=== PATIENT | female | born 1940 | race Caucasian/White ===

== ENCOUNTER → 2018-04-25 13:32 | Outpatient (CLI) | payer MEDICARE, SELFPAY ==
--- NOTE | 2018-04-25 | DI.RAD.S_ITS ---
PROCEDURE: XR SHOULDER LT MIN 2V INDICATIONS: UNKNOWN TECHNIQUE: 3 views of the shoulder were acquired. COMPARISON: None. FINDINGS: Bones: No acute fractures or dislocations and there has been healing of a comminuted complex angulated fracture involving the proximal humeral metadiaphyseal junction, in gross anatomic alignment.. No suspicious bony lesions. Visualized ribs appear intact. Soft tissues: No suspicious soft tissue calcifications. IMPRESSION: Proximal left humeral fracture was comminuted and malaligned moderately, and shows healing with callus bridging each of the fracture planes. No new injury is seen. Dictated by: Bertin Arora M.D. on 04/25/2018 at 14:57 Approved by: Bertin Arora M.D. on 04/25/2018 at 14:58
== END ==
PROVIDERS: Visit Provider Physician Assistant Surgical
DX: S42.292D Other displaced fracture of upper end of left humerus, subsequent encounter for fracture with routine healing (principal)
CPT/HCPCS: 73030

== ENCOUNTER → 2024-03-20 13:12 | Outpatient (CLI) | payer MEDICARE, SELFPAY ==
--- NOTE | 2024-03-20 13:21 | DI.RAD.S_ITS ---
PROCEDURE: XR RIBS LT 2V INDICATIONS: PAIN TECHNIQUE: 3 views of the ribs were acquired. COMPARISON: [facility], CR, XR SHOULDER LT MIN 2V, 04/25/2018, 13:27. FINDINGS: Surgical changes and devices: None. Skin marker at the inferior left ribs. Bones and chest wall: No fractures or dislocations. No suspicious bony lesions. Overlying soft tissues appear unremarkable. Prior fracture of the left proximal humerus Lungs and pleura: The visualized lung appears clear. No pleural effusions or pneumothorax are visible. IMPRESSION: No displaced left-sided rib fracture seen. Dictated by: Medhat Suazo M.D. on 03/20/2024 at 16:09 Approved by: Medhat Suazo M.D. on 03/20/2024 at 16:10
--- NOTE | 2024-03-20 13:21 | DI.RAD.S_ITS ---
PROCEDURE: XR KNEE RT 3V INDICATIONS: PAIN TECHNIQUE: 3 views of the knee were acquired. COMPARISON: None. FINDINGS: Bones: No fractures or dislocations. No suspicious bony lesions. Soft tissues: Trace joint effusion. Prepatellar soft tissue swelling. No suspicious soft tissue calcifications. Arterial vascular calcifications. IMPRESSION: No fracture identified. Prepatellar soft tissue swelling. Dictated by: Medhat Suazo M.D. on 03/20/2024 at 16:07 Approved by: Medhat Suazo M.D. on 03/20/2024 at 16:09
[2024-03-20 14:35] LABS: Add Manual Diff / Slide Review NO; Basophils Absolute Auto 100 /uL (0-100); Basophils Percent Auto 1.2 % (0-2); Eosinophils Absolute Auto 300 /uL (0-450); Eosinophils Percent Auto 2.6 % (2-4); Hematocrit 38.6 % (36-46); Hemoglobin 12.9 g/dL (12.0-16.0); Lymphocytes Absolute Auto 1900 /uL (1100-4500); Lymphocytes Percent Auto 17.7 % (25-40); Mean Corpuscular HGB Conc 33.5 % (30-36); Mean Corpuscular Volume 92.7 fL (80-100); Monocytes Absolute Auto 1000 /uL (0-900); Monocytes Percent Auto 9.2 % (3-14); Neutrophils Absolute Auto 7600 /uL (1500-7000); Neutrophils Percent Auto 69.3 % (50-75); Platelet Count 388 X10^3/uL (150-400); Red Blood Cell Count 4.17 X10^6/uL (4.0-5.2); Red Cell Distribution Width 12.7 % (11.6-14.8)
[2024-03-20 14:58] LABS: Erythrocyte Sedimentation Rate 30 MM/HR (0-20)
[2024-03-20 15:41] LABS: TSH w/ Reflex to FT4 0.77 uIU/mL (0.47-4.68)
[2024-03-20 15:51] LABS: Alanine Aminotransferase 21 IU/L (<35); Albumin 4.6 g/dL (3.5-5.0); Albumin Globulin Ratio 1.2 (1.0-2.8); Alkaline Phosphatase 117 U/L (38-126); Aspartate Aminotransferase 30 IU/L (14-36); BUN Creatinine Ratio 30.8 (6-22); Bilirubin Total 0.5 mg/dL (0.2-1.3); Blood Urea Nitrogen 20 mg/dL (7-17); Calcium 9.4 mg/dL (8.4-10.2); Carbon Dioxide 26 mmol/L (22-32); Chloride 106 mmol/L (98-107); Estimated Glomerular Filt Rate > 60 mL/min (>60); Globulin 3.7 g/dL (1.7-4.1); Glucose 105 mg/dL (80-110); Potassium 4.7 mmol/L (3.4-5.1); Sodium 139 mmol/L (137-145); Total Protein 8.3 g/dL (6.3-8.2); Uric Acid 5.5 mg/dL (2.5-6.2)
[2024-03-21 04:28] LABS: HEMOLYSIS < 15 (0-50)
== END ==
LOC: RAD 13:17
PROVIDERS: PCP Nurse Practitioner Family; Referring Provider Nurse Practitioner Family; Visit Provider Nurse Practitioner Family
DX: R07.82 Intercostal pain (principal); M70.41 Prepatellar bursitis, right knee; R03.0 Elevated blood-pressure reading, without diagnosis of hypertension; M25.561 Pain in right knee; M79.89 Other specified soft tissue disorders
CPT/HCPCS: 36415; 71101; 73562; 80053; 84443; 84550; 85025; 85651; 86140

== ENCOUNTER 2025-02-28 18:30 | Emergency (ER) | payer MEDICARE, SELFPAY ==
[2025-02-28] VITALS (17 sets, daily range): BP systolic 105–160; BP diastolic 51–87; PULSE 89–103; RESP 18–34; TEMP 36.4; O2SAT 92–96; BMI 26.9
--- NOTE | 2025-02-28 18:38 | EKG_ITS ---
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
--- NOTE | 2025-02-28 18:44 | DI.RAD.S_ITS ---
PROCEDURE: XR CHEST 1V INDICATIONS: chest pain TECHNIQUE: One view of the chest was acquired. COMPARISON: None. FINDINGS: Surgical changes and devices: None. Lungs and pleura: Lungs are clear. No pleural effusions or pneumothorax. Mediastinum: Mediastinal contours appear normal. Heart size is normal. Bones and chest wall: No suspicious bony lesions. Overlying soft tissues appear unremarkable. IMPRESSION: No acute pulmonary process. Dictated by: Suzi Horton M.D. on 02/28/2025 at 19:23 Approved by: Suzi Horton M.D. on 02/28/2025 at 19:23
[2025-02-28 19:09] LABS: Add Manual Diff / Slide Review NO; Basophils Absolute Auto 100 /uL (0-100); Basophils Percent Auto 1.2 % (0-2); Eosinophils Absolute Auto 200 /uL (0-450); Eosinophils Percent Auto 2.4 % (2-4); Hematocrit 39.5 % (36-46); Hemoglobin 13.2 g/dL (12.0-16.0); Lymphocytes Absolute Auto 1900 /uL (1100-4500); Lymphocytes Percent Auto 21.2 % (25-40); Mean Corpuscular HGB Conc 33.3 % (30-36); Monocytes Absolute Auto 800 /uL (0-900); Neutrophils Absolute Auto 6100 /uL (1500-7000); Neutrophils Percent Auto 66.2 % (50-75); Platelet Count 389 X10^3/uL (150-400); Red Blood Cell Count 4.25 X10^6/uL (4.0-5.2); Red Cell Distribution Width 12.4 % (11.6-14.8); White Blood Cell Count 9.1 X10^3/uL (4.5-11.0)
[2025-02-28] MEDS: ASPIRIN 81 MG CHEW TAB 324 MG PO (19:12)
[2025-02-28 19:16] LABS: Prothrombin Time 11.4 SECONDS (9.4-12.5)
[2025-02-28 19:19] LABS: PTT Partial Thromboplastin Tim 32 SECONDS (25.1-36.5)
--- NOTE | 2025-02-28 19:21 | PC.NURSE ---
Patient reports fall about 1 week ago with an injury to her right elbow. Patient denies shortness of breath. Patient respiratory rate is 26.
[2025-02-28 19:23] LABS: Alanine Aminotransferase 23 IU/L (<35); Albumin 4.5 g/dL (3.5-5.0); Albumin Globulin Ratio 1.2 (1.0-2.8); Alkaline Phosphatase 88 U/L (38-126); Aspartate Aminotransferase 32 IU/L (14-36); BUN Creatinine Ratio 28.8 (6-22); Bilirubin Total 0.4 mg/dL (0.2-1.3); Blood Urea Nitrogen 23 mg/dL (7-17); Calcium 9.5 mg/dL (8.4-10.2); Carbon Dioxide 30 mmol/L (22-32); Chloride 100 mmol/L (98-107); Creatine Kinase 54 U/L (30-135); Estimated Glomerular Filt Rate > 60 mL/min (>60); Globulin 3.7 g/dL (1.7-4.1); Glucose 171 mg/dL (70-99); HEMOLYSIS < 15 (0-50); Lactate (Lactic Acid) 1.6 mmol/L (0.7-2.1); Lipase 47 U/L (23-300); Sodium 137 mmol/L (137-145); Total Protein 8.2 g/dL (6.3-8.2)
--- NOTE | 2025-02-28 19:30 | ED.GENADULT ---
HPI - General Adult General Chief complaint: Syncope Stated complaint: Weakness, Fatigue, Dizziness Time Seen by Provider: 02/28/25 18:43 History of Present Illness HPI narrative: 84-year-old female was eating dinner at local area [employer] restaurant, walking out of the restaurant felt nauseated, no diarrhea, no abdominal pain. No associated chest pain or shortness of breath or diaphoresis. But felt like she might pass out. No focal weakness to face arm or leg. No focal numbness to face arm or leg. Symptoms seemed to past without specific treatment. Here for further evaluation, feels improved. Related Data Home Medications ?Medication ?Instructions ?Recorded ?Confirmed acetaminophen 500 mg tablet 500 mg PO Q6H PRN 02/18/25 02/18/25 (Tylenol Extra Strength) Previous Rx's ?Medication ?Instructions ?Recorded cefdinir 300 mg capsule 300 mg PO BID 7 days #14 caps 02/28/25 Allergies Allergy/AdvReac Type Severity Reaction Status Date / Time No Known Drug Allergies Allergy Verified 02/28/25 18:35 Patient History Social History (Updated 02/18/25 @ 11:46 by Asia Khalil MA) marital status: number of children: 2 lives independently: No caregiver/support person: Yes (Daughter) housing: house pets and animals: Yes (cat) education level: high school occupational status: previously employed current occupational exposures/hazards: No special musa needs: No leisure activities: games and reading seatbelt use: always water heater temp set < 120 deg: Yes working smoke detector in home: Yes fire extinguisher in home: Yes carbon monox detector in home: Yes firearms in home: No do you feel safe at home: Yes Smoking Status: Former smoker second hand exposure: No alcohol intake: former during the past year weight has: remained stable well-balanced diet: daily or most days daily servings fruits/ve-1 caffeine: Yes eating out: 1-3 times/week Type(s) of exercise: resistance training and sedentary lifestyle Smoking Status: Former smoker Exam Narrative Exam Narrative: GENERAL: Well-developed patient, in mild distress. HEAD: Atraumatic. Normocephalic. EYES: Pupils equal round and reactive. Extraocular motions intact. No scleral icterus. No injection or drainage. ENT: Nose without bleeding, purulent drainage. Throat without erythema, tonsillar hypertrophy or exudate. Airway patent. NECK: Trachea midline. Non tender CARDIOVASCULAR: Regular rate and rhythm without murmurs, gallops, or rubs. RESPIRATORY: Clear to auscultation. Breath sounds equal bilaterally. No wheezes, rales, or rhonchi. GASTROINTESTINAL: Abdomen soft, non-tender, nondistended. EXTREMITIES: No edema or joint tenderness. BACK: Nontender without deformity or crepitance. No flank tenderness. NEURO: AOx3. Motor functions grossly nonfocal. SKIN: No rash or erythema of visible areas Initial Vital Signs Initial Vital Signs: Vital Signs Temperature 97.6 F 02/28/25 18:36 Pulse Rate 93 H 02/28/25 18:36 Respiratory Rate 18 02/28/25 18:36 Blood Pressure 110/51 L 02/28/25 18:36 Pulse Oximetry 93 02/28/25 18:36 Oxygen Delivery Method Room Air 02/28/25 18:36 Course Orders Ordered: ED Orders 02/28/25 21:50 Urinalysis and Microscopic Stat Urine Culture Stat Discontinued Medications Aspirin (Aspirin 81 Mg Chew Tab) 324 mg PO NOW ONE Stop: 02/28/25 18:43 Last Admin: 02/28/25 19:12 Dose: 324 mg Documented By: LUZ Ceftriaxone Sodium 1,000 mg/ (Sodium Chloride) 100 mls @ 200 mls/hr IV NOW ONE Stop: 02/28/25 22:14 Last Infusion: 02/28/25 22:59 Dose: Infused Documented By: Admin: 02/28/25 22:18 Dose: 200 mls/hr Documented By: HNG Vital Signs Vital signs: Vital Signs - 8 hr 02/28/25 22:00 02/28/25 22:30 Pulse Rate 93 H 95 H Pulse Oximetry 94 94 Oxygen Delivery Method Room Air Medical Decision Making Lab Data Lab results reviewed: Yes I reviewed the patient's lab results. Lab results narrative: White blood cell count 9100, hemoglobin 13.2, platelets adequate. Glucose 171. BUN 23 slight elevation with normal creatinine 0.80 noted. Serum CO2 30. Electrolytes unremarkable. Liver functions normal. Lipase normal. Troponin negative/unmeasurable. BNP 198 not elevated. CPK normal. INR 1.0 normal. Urinalysis still pending. 02/28/25 19:00 02/28/25 19:00 Labs: Lab Results 02/28/25 02/28/25 Range/Units 19:00 21:50 WBC 9.1 (4.5-11.0) X10^3/uL RBC 4.25 (4.0-5.2) X10^6/uL Hgb 13.2 (12.0-16.0) g/dL Hct 39.5 (36-46) % MCV 93.0 (80-100) fL MCH 31.0 (26-34) PG MCHC 33.3 (30-36) % RDW 12.4 (11.6-14.8) % Plt Count 389 (150-400) X10^3/uL Neut % (Auto) 66.2 (50-75) % Lymph % (Auto) 21.2 L (25-40) % [place] % (Auto) 9.0 (3-14) % Eos % (Auto) 2.4 (2-4) % Baso % (Auto) 1.2 (0-2) % Neut # (Auto) 6100 (6111-7283) /uL Lymph # (Auto) 1900 (5560-2779) /uL [place] # (Auto) 800 (0-900) /uL Eos # (Auto) 200 (0-450) /uL Baso # (Auto) 100 (0-100) /uL PT 11.4 (9.4-12.5) SECONDS INR 1.0 (0.9-1.3) APTT 32 (25.1-36.5) SECONDS Sodium 137 (137-145) mmol/L Potassium 4.0 (3.4-5.1) mmol/L Chloride 100 (98-107) mmol/L Carbon Dioxide 30 (22-32) mmol/L BUN 23 H (7-17) mg/dL Creatinine 0.80 (0.52-1.04) mg/dL Estimated GFR > 60 (>60) mL/min BUN/Creatinine Ratio 28.8 H (6-22) Glucose 171 H (70-99) mg/dL Lactate 1.6 (0.7-2.1) mmol/L Calcium 9.5 (8.4-10.2) mg/dL Magnesium 2.0 (1.6-2.3) mg/dL Total Bilirubin 0.4 (0.2-1.3) mg/dL AST 32 (14-36) IU/L ALT 23 (<35) IU/L Alkaline Phosphatase 88 (38-126) U/L Total Creatine Kinase 54 (30-135) U/L Troponin I < 0.012 (0.01-0.034) ng/mL NT-Pro-B Natriuret Pep 198 (<450) pg/mL Total Protein 8.2 (6.3-8.2) g/dL Albumin 4.5 (3.5-5.0) g/dL Globulin 3.7 (1.7-4.1) g/dL Albumin/Globulin Ratio 1.2 (1.0-2.8) Lipase 47 (23-300) U/L Urine Color Yellow Urine Appearance Sl cloudy Urine pH 6.0 (4.5-8.0) Ur Specific [place] 1.010 (1.000-1.035) Urine Protein Negative (Negative) Urine Glucose (UA) Negative (Negative) g/dL Urine Ketones Trace H (NEGATIVE) Urine Occult Blood Negative (Negative) Urine Nitrate Positive H (Negative) Urine Bilirubin Negative (NEGATIVE) Urine Urobilinogen 0.2 (0.2) E.U./dL Ur Leukocyte Esterase 1+ H (NEGATIVE) Urine RBC None seen (0-5/HPF) Urine WBC 10-30/hpf H (0-5/HPF) Ur Squamous Epith Cells 1-5 /hpf (0-5/HPF) Urine Bacteria Many (>30) H (None) Hyaline Casts 1-5/lpf (None) Urine Mucus 1+ H (Negative) Ur Culture Indicated? Specimen cultured Vol Urine Centrifuged 10ml (spun) Imaging Data Chest x-ray: Radiologist's Impression: [address] [address] XRay Report Signed Patient: Siobhan Lindsey MR#: [id number] : 1940 Acct:[id number] Age/Sex: 84 / F Date of Service: 02/28/25 Loc: ED Accession Number: [id number] Procedure: XR chest 1V Ordering Provider: Sandro Silva MD PROCEDURE: XR CHEST 1V INDICATIONS: chest pain TECHNIQUE: One view of the chest was acquired. COMPARISON: None. FINDINGS: Surgical changes and devices: None. Lungs and pleura: Lungs are clear. No pleural effusions or pneumothorax. Mediastinum: Mediastinal contours appear normal. Heart size is normal. Bones and chest wall: No suspicious bony lesions. Overlying soft tissues appear unremarkable. IMPRESSION: No acute pulmonary process. Dictated by: Suzi Horton M.D. on 02/28/2025 at 19:23 Approved by: Suzi Horton M.D. on 02/28/2025 at 19:23 ECG Data Attestation: I personally reviewed and interpreted this ECG as follows: Interpretation: Normal sinus rhythm with rate of 91, no obvious ST segment elevation or depression changes. TN 186, QRS 60, QTC 440. MDM Narrative Medical decision making narrative: 84-year-old female had generalized weakness and feeling she might pass out with nausea after eating [employer] food. Symptoms seemed to be resolved without specific treatment. Afebrile, sirs screen negative. Labs pending. Labs show possible urinary tract infection. IV ceftriaxone given. Prescription sent for cefdinir course of antibiotics, to her pharmacy electronically. Encouraged to take antibiotics as directed. Drink plenty of fluids. She feels better, wants to go home, does not want any further testing for now. Discharged home with family. Follow up with PCP early next week. Return precautions discussed. Discharge Plan Departure Patient Disposition: Home Clinical Impression: Urinary tract infection Instructions: DI for Urinary Tract Infection (UTI) Activity Restrictions/Additional Instructions: Nausea with generalized weakness after eating at a [employer] restaurant. No diarrhea. No actual throwing up. Sensation that you might pass out, without actually having passed out. EKG and blood testing not suggestive of heart attack, no electrolyte disturbance. Urinalysis eventually obtained, suspicious for infection, IV antibiotic ceftriaxone given. Further antibiotics prescription sent to your pharmacy. Take antibiotics as directed. Drink plenty of fluids. Consider recheck of urinalysis after completion of your course of antibiotic, to make sure the infection as truly cleared. We did discuss further evaluation such as CT scan of the head, CT scan of the head in the neck vessels, declined. Prescriptions: New cefdinir 300 mg capsule 300 mg PO BID 7 Days Qty: 14 0RF No Action acetaminophen [Tylenol Extra Strength] 500 mg tablet 500 mg PO Q6H PRN Referrals: Christine Gillis DO [Primary Care Provider, [facility]] Stand Alone Forms: Patient Portal/API
[2025-02-28 19:34] LABS: NT-proBNP (BNP-Adult 18+) 198 pg/mL (<450); Troponin I < 0.012 ng/mL (0.01-0.034)
[2025-02-28 22:00] LABS: Appearance Urine UA SL CLOUDY; Bilirubin Urine UA NEGATIVE (NEGATIVE); Color Urine UA YELLOW; Glucose Urine UA NEGATIVE (Negative); Ketones Urine UA TRACE (NEGATIVE); Leukocyte Esterase Urine UA 1+ (NEGATIVE); Nitrite Urine UA POSITIVE (Negative); Occult Blood Urine UA NEGATIVE (Negative); Protein Urine UA NEGATIVE (Negative); Urobilinogen Urine UA 0.2 E.U./dL (0.2)
[2025-02-28 22:08] LABS: Bacteria Urine Many (>30); RBC Urine None Seen (0-5/HPF); Squamous Epithelial Cell Urine 1-5 /HPF (0-5/HPF); Urine Volume 10mL (spun); WBC Urine 10-30/HPF (0-5/HPF)
[2025-02-28 22:09] LABS: Culture Indicated Urine Specimen Cultured; Hyaline Casts Urine 1-5/LPF; Mucus Urine 1+ (Negative)
[2025-02-28] MEDS: cefTRIAXone 1,000 MG in SODIUM CHLORIDE 0.9% 100 ML 200 MG IV (22:18)
== END 2025-02-28 22:50 | disposition home or self-care (01) ==
PROVIDERS: Emergency Provider Emergency Medicine; PCP Family Medicine
DX: N39.0 Urinary tract infection, site not specified (principal); R11.0 Nausea; R07.9 Chest pain, unspecified
CPT/HCPCS: 36415; 71045; 80053; 81001; 82550; 83605; 83690; 83735; 83880; 84484; 85025; 85610; 85730; 87077; 87086; 87186; 93005; 93010; 96365; 99284; J0696

== ENCOUNTER → 2025-04-12 12:27 | Outpatient (CLI) | payer MEDICARE, SELFPAY ==
[2025-04-12 14:12] LABS: Appearance Urine UA SL CLOUDY; Bilirubin Urine UA NEGATIVE (NEGATIVE); Color Urine UA YELLOW; Glucose Urine UA NEGATIVE (Negative); Ketones Urine UA NEGATIVE (NEGATIVE); Leukocyte Esterase Urine UA NEGATIVE (NEGATIVE); Nitrite Urine UA NEGATIVE (Negative); Occult Blood Urine UA NEGATIVE (Negative); Protein Urine UA NEGATIVE (Negative); Specific Gravity Urine UA <=1.005 (1.000-1.035); Urobilinogen Urine UA 0.2 E.U./dL (0.2)
[2025-04-12 14:16] LABS: pH Urine UA 6.0 (4.5-8.0)
[2025-04-12 14:21] LABS: Culture Indicated Urine Cult Not Indicated
== END ==
PROVIDERS: PCP Family Medicine; Referring Provider Family Medicine; Visit Provider Family Medicine
DX: N39.0 Urinary tract infection, site not specified (principal)
CPT/HCPCS: 81001

== ENCOUNTER → 2025-06-16 13:42 | Outpatient (CLI) | payer MEDICARE, SELFPAY ==
[2025-06-16 14:19] LABS: Appearance Urine UA CLEAR; Bilirubin Urine UA NEGATIVE (NEGATIVE); Color Urine UA YELLOW; Glucose Urine UA NEGATIVE (Negative); Ketones Urine UA NEGATIVE (NEGATIVE); Leukocyte Esterase Urine UA 1+ (NEGATIVE); Nitrite Urine UA NEGATIVE (Negative); Occult Blood Urine UA NEGATIVE (Negative); Protein Urine UA NEGATIVE (Negative); Specific Gravity Urine UA <=1.005 (1.000-1.035); Urobilinogen Urine UA 0.2 E.U./dL (0.2)
[2025-06-16 14:22] LABS: pH Urine UA 6.0 (4.5-8.0)
[2025-06-16 14:29] LABS: Culture Indicated Urine Specimen Cultured
== END ==
PROVIDERS: PCP Family Medicine; Referring Provider Physician Assistant; Visit Provider Physician Assistant
DX: R39.198 Other difficulties with micturition (principal); N39.0 Urinary tract infection, site not specified
CPT/HCPCS: 81001; 81002; 87086